=== PATIENT | female | born 2000 | race Caucasian/White ===

== ENCOUNTER 2020-10-10 05:24 | Inpatient (IN) ==
[2020-10-10] MEDS ORDERED: ONDANSETRON 4 MG/2 ML VIAL IV PRN ×3 (05:34→14:16)
[2020-10-10] MEDS ORDERED: MEPERIDINE 50 MG/1 ML VIAL IV PRN (05:34)
[2020-10-10] MEDS ORDERED: BUTORPHANOL 2 MG/ML VIAL IV PRN (05:34)
[2020-10-10] MEDS: LACTATED RINGERS 1,000 ML IV SCH ×3 (06:01→16:55)
[2020-10-10 06:17] LABS: Basophils # 0.1 10*3/uL (0.0-0.2); Basophils % 0.4 % (0.0-0.8); Eosinophils # 0.1 10*3/uL (0.0-0.87); Eosinophils % 0.6 % (0.00-10.9); Hemoglobin 8.5 GM/DL (12.0-16.0); Immature Granulocytes % 1.7 %; Immature Granulocytes Absolute 0.27 #; Lymphocytes # 2.5 10*3/uL (1.4-4.0); Lymphocytes % 15.9 % (21.3-54.2); Mean Corpuscular HGB Conc 30.4 GM/DL (32-36); Mean Corpuscular Volume 73.7 FL (87-102); Mean Platelet Volume 10.1 FL (9.6-12.0); Monocytes % 6.9 % (1.7-12.7); Neutrophils % 74.5 % (38.7-73.9); Platelet Count 347 T/CUMM (130-400); White Blood Count 15.5 T/CUMM (4-12)
[2020-10-10] MEDS: OXYTOCIN/LR 20 UNIT/1,000 ML BAG IV SCH (06:26)
[2020-10-10 06:34] LABS: Albumin 2.8 G/DL (3.4-5.0); Bilirubin,Total 0.4 MG/DL (0.2-1.0); Calcium 8.9 MG/DL (8.5-10.1); Osmolality,Calculated 272.7 MOS/KG (273-304); Potassium 3.8 MMOL/L (3.5-5.1); Total Protein 7.1 G/DL (6.4-8.2)
[2020-10-10] MEDS ORDERED: hydrOXYzine HCL 25 MG/1 ML VIAL IM PRN (08:17)
[2020-10-10] MEDS ORDERED: PROMETHAZINE 25 MG/1 ML VIAL IM PRN (08:17)
[2020-10-10] MEDS ORDERED: NALOXONE 0.4 MG/ML VIAL IV PRN (08:17)
[2020-10-10] MEDS ORDERED: diphenhydrAMINE 50 MG/1 ML VIAL IV PRN ×2 (08:17)
[2020-10-10] MEDS ORDERED: CITRIC ACID/SODIUM CITRATE 30 ML UDCUP PO ONE (08:17)
[2020-10-10] MEDS ORDERED: ePHEDrine 50 MG/ML VIAL IV PRN (08:17)
[2020-10-10] MEDS ORDERED: FAMOTIDINE 20 MG/2 ML VIAL IV ONE (08:17)
[2020-10-10] MEDS ORDERED: LACTATED RINGERS 1,000 ML IV SCH ×2 (08:30)
[2020-10-10] MEDS ORDERED: LACTATED RINGERS 1,000 ML IV ONE (10:00)
[2020-10-10] MEDS: fentaNYL 2 MCG/ROPIV 0.2% EPID 100 ML EPIDURAL SCH (11:55)
[2020-10-10] MEDS ORDERED: miSOPROStoL 200 MCG TABLET ONE (12:01)
[2020-10-10] MEDS ORDERED: METHYLERGONOVINE 0.2 MG/1 ML AMP ONE (12:01)
[2020-10-10] MEDS ORDERED: TRANEXAMIC ACID 1,000 MG/10 ML VIAL ONE (12:01)
[2020-10-10] MEDS ORDERED: OXYTOCIN/LR 20 UNIT/1,000 ML BAG IV ONE ×2 (12:01→14:16)
[2020-10-10] MEDS ORDERED: CARBOPROST TROMETHAMINE 250 MCG/ML AMP IM ONE (12:02)
[2020-10-10] MEDS ORDERED: SODIUM CHLORIDE 0.9% 0 ML IV ONE (12:02)
[2020-10-10 13:57] LABS: Cord Venous Blood HCO3 22.1 MMOL/L; Cord Venous Blood PCO2 38.4 MMHG; Cord Venous Blood PO2 33.1
[2020-10-10] MEDS ORDERED: DIPH/TET/ACEL PERT BOOSTER VACCINE 0.5 ML VIAL IM ONE (14:16)
[2020-10-10] MEDS ORDERED: BENZOCAINE 20%/MENTHOL 0.5% SPRAY 56 GM CAN TOP PRN (14:16)
[2020-10-10] MEDS ORDERED: HYDROCORTISONE 2.5% RECTAL CREAM 30 GM TUBE TOP PRN (14:16)
[2020-10-10] MEDS ORDERED: BISACODYL 10 MG SUPP RECTAL PRN (14:16)
[2020-10-10] MEDS ORDERED: oxyCODONE/ACETAMINOPHEN 5-325 MG TABLET PO PRN ×2 (14:16)
[2020-10-10] MEDS ORDERED: RHO(D) IMMUNE GLOBULIN 300 MCG SYRINGE IM ONE (14:16)
[2020-10-10] MEDS ORDERED: LANOLIN 50% CREAM 0.3 OZ TUBE TOP PRN (14:16)
[2020-10-10] MEDS ORDERED: WITCH HAZEL PADS 100/JAR TOP PRN (14:16)
[2020-10-10] MEDS ORDERED: ACETAMINOPHEN 325 MG TABLET PO PRN (14:16)
[2020-10-10] MEDS ORDERED: MEASLES/MUMPS/RUBELLA VACCINE 0.5 ML VIAL SUBCUT ONE (14:16)
[2020-10-10 14:52] LABS: Bilirubin,Urine Negative (Negative); Blood, Urine Negative (Negative); Glucose,Urine (UA) Negative (Negative); Ketones,Urine 5 mg/dL (Negative); Nitrite,Urine Negative (Negative); Protein,Urine Negative; RBC,Urine <1 /HPF (0-4); Urine Appearance CLEAR (Clear); Urine Color Yellow (Yellow); Urine Specific Gravity 1.008 (1.001-1.035); Urine Urobilinogen < 2.0 EU/DL (0.2-1.0); WBC,Urine <1 /HPF (0-6)
[2020-10-10] MEDS: DOCUSATE SODIUM 100 MG CAPSULE PO SCH (21:29)
[2020-10-10] MEDS: IBUPROFEN 800 MG TABLET PO PRN (23:37)
[2020-10-11 05:24] LABS: Basophils # 0.1 10*3/uL (0.0-0.2); Basophils % 0.5 % (0.0-0.8); Eosinophils # 0.1 10*3/uL (0.0-0.87); Eosinophils % 0.5 % (0.00-10.9); Hematocrit 20.2 VOL% (35.7-47.0); Immature Granulocytes % 1.6 %; Immature Granulocytes Absolute 0.21 #; Lymphocytes # 2.4 10*3/uL (1.4-4.0); Lymphocytes % 18.2 % (21.3-54.2); Mean Corpuscular HGB Conc 30.7 GM/DL (32-36); Mean Corpuscular Volume 73.5 FL (87-102); Mean Platelet Volume 10.2 FL (9.6-12.0); Monocytes % 7.6 % (1.7-12.7); Neutrophils % 71.6 % (38.7-73.9); Platelet Count 252 T/CUMM (130-400); Red Blood Count 2.75 MC/CUMM (3.8-5.5); Red Cell Distribution Width 15.9 % (9.3-17.3)
[2020-10-11 05:26] LABS: Hemoglobin 6.2 GM/DL (12.0-16.0)
[2020-10-11] MEDS: IBUPROFEN 800 MG TABLET PO PRN ×2 (08:15→21:12)
[2020-10-11] MEDS: DOCUSATE SODIUM 100 MG CAPSULE PO SCH ×2 (08:15→21:08)
[2020-10-11] MEDS: FERROUS SULFATE 325 MG TABLET PO SCH ×2 (08:15→21:07)
[2020-10-11] MEDS ORDERED: RHO(D) IMMUNE GLOBULIN 300 MCG SYRINGE IM ONE (14:10)
[2020-10-11] MEDS: OXYTOCIN/LR 20 UNIT/1,000 ML BAG IV SCH (18:35)
[2020-10-11] MEDS: LACTATED RINGERS 1,000 ML IV SCH (18:37)
[2020-10-11] MEDS: fentaNYL 2 MCG/ROPIV 0.2% EPID 100 ML EPIDURAL SCH (18:37)
[2020-10-12 07:24] VITALS: BP 113/64
[2020-10-12] MEDS: DOCUSATE SODIUM 100 MG CAPSULE PO SCH (08:14)
[2020-10-12] MEDS: FERROUS SULFATE 325 MG TABLET PO SCH (08:15)
== END 2020-10-12 13:10 | disposition home or self-care (01) | DRG 560 ==
LOC: N.LD 05:24 → N.OB 15:37
PROVIDERS: ADMIT Specialist; ATTEND Specialist